=== PATIENT | female | born 1950 | race Two or more races ===

== ENCOUNTER 2022-05-09 17:43 | Emergency (ER) | payer OTHER ==
[~2022-05-09] VITALS: Ht 152.4 cm; Wt 78.0 kg
[2022-05-09] MEDS ORDERED: GLUMETZA500 MG PO (17:54)
[2022-05-09] MEDS ORDERED: SYNTHROID50 MCG PO (17:55)
[2022-05-09] MEDS ORDERED: CLONAZEPAM0.5 M1 PO (17:56)
[2022-05-09] MEDS ORDERED: TOPROL XL25 M1 PO (17:56)
[2022-05-09] MEDS ORDERED: ATACAND16 MG PO (17:56)
[2022-05-09] MEDS ORDERED: SIMVASTATIN5 MG (17:56)
[2022-05-09] MEDS ORDERED: HORIZANT300 MG (17:56)
[2022-05-09] MEDS ORDERED: ZEGERID 40 MG1 EACH PO (17:57)
[2022-05-09] MEDS ORDERED: K2 PLUS D3 TAB1 EACH PO (17:58)
== END 2022-05-09 21:18 | disposition home or self-care (01) ==
LOC: ER 17:43
DX: R10.13 Epigastric pain (principal); E11.9 Type 2 diabetes mellitus without complications; Z79.899 Other long term (current) drug therapy; I10 Essential (primary) hypertension